=== PATIENT | female | born 1960 | race Two or more races ===

== ENCOUNTER 2019-07-16 17:16 | Emergency (ER) | payer SELFPAY ==
[~2019-07-16] VITALS: Ht 154.9 cm; Wt 83.9 kg
[2019-07-16 17:17] VITALS: BP 173/82
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
[2019-07-16] MEDS ORDERED: Tylenol #3 tab (300mg/30mg) PO ONE (17:45)
--- NOTE | 2019-07-16 17:54 | NUR ---
ED Nurse Note: Patient went down for xray
--- NOTE | 2019-07-16 18:32 | Diagnostic Imaging Report ---
EXAM: XR Right Femur, 2 Views CLINICAL HISTORY: PAIN TECHNIQUE: Frontal and lateral views of the right femur. COMPARISON: None FINDINGS: Bones/joints: No displaced fracture or dislocation identified. Osteopenia. Degenerative changes of the right knee. Mild degenerative changes of the right hip. Soft tissues: Normal. IMPRESSION: No displaced fracture or dislocation identified.
--- NOTE | 2019-07-16 18:46 | Diagnostic Imaging Report ---
EXAM: XR Pelvis, 1 or 2 Views CLINICAL HISTORY: PAIN TECHNIQUE: Frontal view of the pelvis. COMPARISON: None FINDINGS: Bones/joints: No displaced fracture or dislocation identified. Osteopenia. Degenerative changes of the visualized lower lumbar spine. Soft tissues: Normal. IMPRESSION: No displaced fracture or dislocation identified.
--- NOTE | 2019-07-16 18:54 | Diagnostic Imaging Report ---
EXAM: XR Right Tibia and Fibula, 2 Views CLINICAL HISTORY: PAIN TECHNIQUE: Frontal and lateral views of the right tibia and fibula. COMPARISON: None FINDINGS: Bones/joints: No displaced fracture or dislocation identified. Osteopenia. Plantar calcaneal spur. Soft tissues: Generalized soft tissue prominence. IMPRESSION: No displaced fracture or dislocation identified.
--- NOTE | 2019-07-16 18:54 | Diagnostic Imaging Report ---
EXAM: XR Right Knee, 3 views CLINICAL HISTORY: PAIN TECHNIQUE: Three views of the right knee. COMPARISON: None FINDINGS: Bones/joints: No displaced fracture or dislocation identified. Osteopenia. Mild degenerative changes of the right knee. No joint effusion. Soft tissues: Generalized soft tissue prominence. IMPRESSION: No displaced fracture or dislocation identified.
--- NOTE | 2019-07-16 19:40 | Diagnostic Imaging Report ---
EXAM: XR Left Knee, 3 views CLINICAL HISTORY: PAIN TECHNIQUE: Three views of the left knee. COMPARISON: None FINDINGS: Bones/joints: No displaced fracture or dislocation identified. Osteopenia. Degenerative changes of the left knee. No significant left knee joint effusion. Soft tissues: Generalized soft tissue prominence. IMPRESSION: No displaced fracture or dislocation identified.
[2019-07-16] MEDS ORDERED: IBUPROFEN600 MG ORAL (20:00)
[2019-07-16 20:05] VITALS: BP 173/82
--- NOTE | 2019-07-16 20:06 | NUR ---
ED Nurse Note: Pt cleared by health care Provider for discharge. DC instructions/prescription was given and explained to pt and verbalized understanding of teachings. All medical deviecs such as ID band removed. Pt is AAO x4, ambulatory and left with all personal belongings.
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
== END 2019-07-16 20:10 | disposition home or self-care (01) ==
LOC: EDBD 17:16 → EMR 19:16
DX: T14.90XA Injury, unspecified, initial encounter (principal); M79.604 Pain in right leg; M25.562 Pain in left knee; R10.2 Pelvic and perineal pain; W18.39XA Other fall on same level, initial encounter; Y92.811 Bus as the place of occurrence of the external cause
CPT/HCPCS: 72170; 99284